=== PATIENT | male | born 1960 | race Caucasian/White ===

== ENCOUNTER 2017-01-12 07:30 | Emergency (ER) | payer OTHER ==
[~2017-01-12] VITALS: Ht 170.2 cm; Wt 107.5 kg
[2017-01-12] MEDS ORDERED: AMLODIPINE BESY10 MG PO (07:44)
[2017-01-12] MEDS ORDERED: ATORVASTATIN CA40 MG PO (07:44)
[2017-01-12] MEDS ORDERED: VITAMIN D3400 UNIT PO (07:44)
[2017-01-12] MEDS ORDERED: CHLORTHALIDONE25 MG PO (07:45)
[2017-01-12] MEDS ORDERED: ASPIR 8181 MG PO (07:45)
[2017-01-12] MEDS ORDERED: METFORMIN HCL500 MG PO (07:45)
[2017-01-12] MEDS ORDERED: JARDIANCE10 MG PO (07:46)
[2017-01-12] MEDS ORDERED: KLOR-CON 1010 MEQ PO (07:46)
[2017-01-12] MEDS ORDERED: PREDNISONE50 MG PO (10:04)
[2017-01-12 10:14] VITALS: BP 134/97
== END 2017-01-12 10:16 | disposition home or self-care (01) ==
LOC: ER 07:30
DX: T78.3XXA Angioneurotic edema, initial encounter (principal); T45.0X5A Adverse effect of antiallergic and antiemetic drugs, initial encounter; G47.30 Sleep apnea, unspecified; Z88.8 Allergy status to other drugs, medicaments and biological substances; Z88.0 Allergy status to penicillin; Z88.2 Allergy status to sulfonamides; Y84.8 Other medical procedures as the cause of abnormal reaction of the patient, or of later complication, without mention of misadventure at the time of the procedure; Y92.89 Other specified places as the place of occurrence of the external cause